=== PATIENT | male | born 1990 | race Caucasian/White ===

== ENCOUNTER 2022-08-12 15:48 | Emergency (ER) | payer OTHER, SELFPAY ==
--- NOTE | ~2022-08-12 | XR_ITS ---
EXAMINATION: XR ANKLE, RIGHT CLINICAL INFORMATION: Pain after injury COMPARISON: 01/09/2014 TECHNIQUE: AP, lateral, and mortise views of the right ankle. FINDINGS: Chronic corticated ossific density at the tip of the lateral malleolus. No acute fracture or dislocation. The ankle mortise is congruent. Osteophyte formation along the tip of the medial malleolus. Mild circumferential soft tissue swelling. There is likely an ankle joint effusion. XR/XR ankle RT min 3V IMPRESSION: Soft tissue swelling with ankle joint effusion. No acute fracture or malalignment.
--- NOTE | 2022-08-12 16:34 | ED_ITS ---
HPI - Extremity Injury (Lower) General Chief Complaint: Extremity Injury, Lower <JUSTIN Mast Last Filed: 08/12/22 16:36> Stated Complaint: R ankle pain <JUSTIN Mast Last Filed: 08/12/22 16:36> Time Seen by Provider: 08/12/22 16:57 <JUSTIN Mast Last Filed: 08/12/22 16:36> Source: patient <JUSTIN Sanford Last Filed: 08/12/22 18:11> Mode of arrival: ambulatory <JUSTIN Sanford Last Filed: 08/12/22 18:11> Limitations: no limitations <JUSTIN Sanford Last Filed: 08/12/22 18:11> History of Present Illness HPI Narrative: Patient is a 31 year old assigned male at with a history of tendon rupture in his right ankle presenting to the emergency department today with right ankle pain. Patient states that he rolled his ankle inward earlier today while rushing down the steps to leave his house. He denies feeling a pop sensation upon injury. Patient denies any dizziness, lightheadedness, abdominal pain, nausea, vomiting, fever, chills, blurry vision, double vision, loss of vision, chest pain, difficulty breathing, shortness of breath, back pain, night sweats, pain with urination, increased urinary frequency, increased urinary urgency, blood in his urine or stool, syncope or a near syncopal episode, bowel incontinence, bladder incontinence, bowel retention, bladder retention, or any other complaints at this time. <JUSTIN Sanford Last Filed: 08/12/22 18:11> MD complaint: ankle injury <JUSTIN Sanford Last Filed: 08/12/22 18:11> Onset (ago): hour(s) (4) <JUSTIN Sanford Last Filed: 08/12/22 18:11> Injury: Right: ankle <JUSTIN Sanford Last Filed: 08/12/22 18:11> Type of Injury: inversion <JUSTIN Sanford Last Filed: 08/12/22 18:11> Place: street/outdoors <JUSTIN Sanford Last Filed: 08/12/22 18:11> Exacerbating factors: other (walking) <JUSTIN Sanford Last Filed: 08/12/22 18:11> Context: walking <JUSTIN Sanford Last Filed: 08/12/22 18:11> Other symptoms: none <JUSTIN Sanford Last Filed: 08/12/22 18:11> Related Data Allergies/Adverse Reactions: Allergies Allergy/AdvReac Type Severity Reaction Status Date / Time amoxicillin [AMOXICILLIN] Allergy Unknown UNKNOWN Unverified 01/25/20 16:02 Sulfa (Sulfonamide Allergy Unknown Verified 05/12/16 00:00 Antibiotics) sulfamethoxazole Allergy Unknown UNKNOWN Unverified 01/25/20 16:02 [From BACTRIM] trimethoprim [From BACTRIM] Allergy Unknown UNKNOWN Unverified 01/25/20 16:02 <JUSTIN Mast Last Filed: 08/12/22 16:36> Review of Systems Review of Systems: Yes all other systems are reviewed and are negative <JUSTIN Sanford - Last Filed: 08/12/22 18:11> Constitutional: Constitutional: Reports no additional constitutional complaints, Denies chills, Denies fever(s) and Denies night sweats <JUSTIN Sanford Last Filed: 08/12/22 18:11> Eyes: Eyes: Reports no additional eye complaints, Denies blurry vision, Denies change in vision, Denies diplopia, Denies eye discharge, Denies loss of vision and Denies eye pain <JUSTIN Sanford Last Filed: 08/12/22 18:11> ENT: Denies dizziness <JUSTIN Sanford Last Filed: 08/12/22 18:11> Cardiovascular: Cardiovascular: Reports no additional cardiovascular complaints, Denies chest pain, Denies lightheadedness, Denies Loss of Consciousness and Denies dyspnea <JUSTIN Sanford Last Filed: 08/12/22 18:11> Respiratory: Respiratory: Reports no additional respiratory complaints and Denies dyspnea <JUSTIN Sanford Last Filed: 08/12/22 18:11> Gastrointestinal: Gastrointestinal: Reports no additional gastrointestinal complaints, Denies abdominal pain, Denies melena, Denies hematochezia, Denies change in bowel habits and Denies change in stool character <JUSTIN Sanford - Last Filed: 08/12/22 18:11> Genitourinary: Genitourinary: Reports no additional male genitourinary complaints, Denies hematuria, Denies oliguria, Denies difficulty urinating, Denies dysuria, Denies urinary frequency, Denies urinary hesitancy, Denies urinary incontinence and Denies urinary urgency <JUSTIN Sanford - Last Filed: 08/12/22 18:11> Musculoskeletal: Musculoskeletal: Reports no additional musculoskeletal complaints, Denies numbness and Denies tingling <JUSTIN Sanford - Last Filed: 08/12/22 18:11> Comments: right ankle pain <JUSTIN Sanford - Last Filed: 08/12/22 18:11> Neurologic: Denies dizziness, Denies loss of vision, Denies numbness and Denies tingling <JUSTIN Sanford - Last Filed: 08/12/22 18:11> Psychiatric: Psychiatric: Reports no additional psychiatric complaints <JUSTIN Sanford - Last Filed: 08/12/22 18:11> Endocrine: Endocrine: Reports no additional endocrine complaints <JUSTIN Sanford - Last Filed: 08/12/22 18:11> Hematologic/Lymphatic: Hematologic/Lymphatic: Reports no additional hematologic/lymphatic complaints <JUSTIN Sanford - Last Filed: 08/12/22 18:11> Allergic/Immunologic: Allergic/Immunologic: Reports no additional allergic/immunologic complaints <JUSTIN Sanford - Last Filed: 08/12/22 18:11> [facility] Past Medical History Attestation statement: The following information was validated with the patient. <JUSTIN Sanford - Last Filed: 08/12/22 18:11> Source: old records reviewed and nursing notes reviewed <JUSTIN Sanford - Last Filed: 08/12/22 18:11> Social History Social History: Social History Advance Directives: No Advance Directives Information Provided: No <JUSTIN Mast - Last Filed: 08/12/22 16:36> Physical Exam Vital Signs: Vital Signs: Last Vital Signs Temp 98 F 08/12/22 16:36 Pulse 63 08/12/22 16:36 Resp 18 08/12/22 16:36 BP 133/73 08/12/22 16:36 Pulse Ox 98 08/12/22 16:36 O2 Del Method Room Air 08/12/22 16:36 BMI result Body Mass Index 39.9 <JUSTIN Mast Last Filed: 08/12/22 16:36> Vital Signs: Last Vital Signs Temp 98 F 08/12/22 16:36 Pulse 63 08/12/22 16:36 Resp 18 08/12/22 16:36 BP 133/73 08/12/22 16:36 Pulse Ox 98 08/12/22 16:36 O2 Del Method Room Air 08/12/22 16:36 BMI result Body Mass Index 39.9 <JUSTIN Sanford - Last Filed: 08/12/22 18:11> Const: General: cooperative, no acute distress, alert and awake <JUSTIN Sanford Last Filed: 08/12/22 18:11> Nutritional Appearance: well nourished <JUSTIN Sanofrd - Last Filed: 08/12/22 18:11> Orientation/consciousness: patient oriented x3 <JUSTIN Sanford Last Filed: 08/12/22 18:11> Limitations: no limitations <JUSTIN Sanford Last Filed: 08/12/22 18:11> HEENT: Head: Yes normal to inspection and Yes atraumatic <JUSTIN Sanford - Last Filed: 08/12/22 18:11> Ears: hearing grossly normal bilaterally and external ears normal <JUSTIN Sanford Last Filed: 08/12/22 18:11> General nose exam: Normal external nose present, no nasal discharge noted and no epistaxis <JUSTIN Sanford Last Filed: 08/12/22 18:11> Face and sinus: Yes normal facial exam, No abrasion and No laceration <JUSTIN Sanford Last Filed: 08/12/22 18:11> Mouth: Normal oral and palatal mucosa present, no drooling and no muffled voice <JUSTIN Sanford Last Filed: 08/12/22 18:11> Eyes: General: appearance normal, both eyes and all related structures <Jackelin Starks PA - Last Filed: 08/12/22 18:11> Periorbital: periorbital findings normal <Jackelin Starks PA - Last Filed: 08/12/22 18:11> Eyelids: Yes eyelids normal <Jackelin Starks PA - Last Filed: 08/12/22 18:11> Conjunctivae: conjunctivae normal <Jackelin Starks PA - Last Filed: 08/12/22 18:11> Pupils: Equal, round and reactive pupils present <Jackelin Starks PA - Last Filed: 08/12/22 18:11> EOM: EOMs intact bilaterally <Jackelin Starks PA - Last Filed: 08/12/22 18:11> Neck: Neck: Yes normal visual inspection, Yes full ROM and Yes no lymphadenopathy <Jackelin Starks PA - Last Filed: 08/12/22 18:11> Chest: Chest palpation & inspection: normal inspection of the chest <Jackelin Cabralesperanza [place] - Last Filed: 08/12/22 18:11> Resp: Effort & Inspection: normal respiratory effort and able to speak in complete sentences <Jackelin Starks PA - Last Filed: 08/12/22 18:11> GI: Inspection: Yes normal to inspection <Jackelin Starks PA - Last Filed: 08/12/22 18:11> Neuro: General: patient oriented x3 <Jackelin Starks PA - Last Filed: 08/12/22 18:11> Cranial nerves: Yes Equal, round and reactive pupils present <Jackelin Starks NV - Last Filed: 08/12/22 18:11> Cognition (Neuro): normal cognition <Jackelin Starks PA - Last Filed: 08/12/22 18:11> Motor exam (neuro): 5/5 motor strength present throughout <Jackelin Starks PA - Last Filed: 08/12/22 18:11> Sensory Exam: Normal double simultaneous stimulation for sensation <Jackelin Starks PA - Last Filed: 08/12/22 18:11> Coordination: [id number] test normal <Jackelin Starks PA - Last Filed: 08/12/22 18:11> Extrem: General: Yes normal to inspection, Yes full ROM and Yes capillary refill normal <JUSTIN Sanford - Last Filed: 08/12/22 18:11> Right lower extremity: full ROM, normal capillary refill and ankle Details: tenderness Location: of the lateral malleolus and of the medial malleolus and swelling Details: laterally <JUSTIN Sanford - Last Filed: 08/12/22 18:11> Psych: Appearance: grossly normal <JUSTIN Sanford - Last Filed: 08/12/22 18:11> Mental Status: mental status grossly normal <JUSTIN Sanford - Last Filed: 08/12/22 18:11> Affect: normal affect <JUSTIN Sanford - Last Filed: 08/12/22 18:11> Attitude: cooperative <JUSTIN Sanford - Last Filed: 08/12/22 18:11> Thought process: Normal thought process present <JUSTIN Sanford Last Filed: 08/12/22 18:11> Thought content: Normal thought content present <JUSTIN Sanford Last Filed: 08/12/22 18:11> Insight: Good insight present (Psych) <JUSTIN Sanford Last Filed: 08/12/22 18:11> Course Course Course Narrative: RME - 31 yo male presents to the ER for evaluation of right ankle pain after he twisted it while walking down the stairs earlier today. It is swollen and is painful to walk on it. Plan: x-ray ankle to r/o fracture <JUSTIN Mast - Last Filed: 08/12/22 16:36> Medical Decision Making Medical Decision Making MDM Narrative: Patient is a 31 year old assigned male at with a history of right ankle tendon rupture presenting to the emergency department today with right ankle pain after rolling his ankle. Patient's physical exam showed tenderness and edema over the patients right ankle but was otherwise unremarkable. Patient's right ankle x-ray showed no acute process. I explained my physical exam findings as well as all test results to the patient. I answered all questions asked by the patient. Patient received a short walking boot. Patient's PMS was intact prior to and after boot placement. I stressed the importance of the patient following up with his primary care provider and an orthopedic provider. I stressed the importance of the patient returning to the emergency department immediately if his symptoms were to worsen or if he were to develop any dizziness, shortness of breath, difficulty breathing, chest pain, blurry vision, loss of vision, nausea, vomiting, abdominal pain, fever, chills, back pain, or any other complaints. Patient verbalized agreement and understanding with this treatment plan and discharge. <JUSTIN Sanford - Last Filed: 08/12/22 18:11> Differential Diagnosis Differential Diagnoses: The differential diagnosis associated with the presentation includes <JUSTIN Sanford Last Filed: 08/12/22 18:11> ankle sprain <JUSTIN Sanford Last Filed: 08/12/22 18:11> Independent Interpretation I performed an independent interpretation of an: Plain X-Ray <JUSTIN Sanford Last Filed: 08/12/22 18:11> Interpretation: My interpretation is in agreement with the radiologist's impression of this imaging study. EXAMINATION: XR ANKLE, RIGHT CLINICAL INFORMATION: Pain after injury? COMPARISON: 01/09/2014? TECHNIQUE: AP, lateral, and mortise views of the right ankle. FINDINGS: Chronic corticated ossific density at the tip of the lateral malleolus. No acute fracture or dislocation. The ankle mortise is congruent. Osteophyte formation along the tip of the medial malleolus. Mild circumferential soft tissue swelling. There is likely an ankle joint effusion.? XR/XR ankle RT min 3V IMPRESSION: Soft tissue swelling with ankle joint effusion. No acute fracture or malalignment. Dictated By: Omega Parra MD Signed By: Electronically signed by Omega Parra MD 08/12/22 1702 <JUSTIN Sanford - Last Filed: 08/12/22 18:11> Procedures Orthopedic Splinting/Casting Injury #1: Side: right <JUSTIN Sanford - Last Filed: 08/12/22 18:11> Lower Extremity Injury Location: ankle <JUSTIN Sanford - Last Filed: 08/12/22 18:11> Lower Extremity Immobilizer: boot orthosis <JUSTIN Sanford - Last Filed: 08/12/22 18:11> Discharge Plan Discharge Clinical Impression: Ankle sprain and strain <JUSTIN Mast - Last Filed: 08/12/22 16:36> Patient Disposition: Home, Self-Care <JUSTIN Mast - Last Filed: 08/12/22 16:36> Instructions: Ankle Sprain (ED) <JUSTIN Mast - Last Filed: 08/12/22 16:36> Additional Instructions: Follow up with your primary care provider and an orthopedic provider. Return to the emergency department immediately if your symptoms worsen or if you develop any dizziness, shortness of breath, difficulty breathing, chest pain, blurry vision, loss of vision, nausea, vomiting, abdominal pain, fever, chills, back pain, or any other complaints. <JUSTIN Mast - Last Filed: 08/12/22 16:36> Referrals: [facility] [Provider Group] (Call to establish and follow up with an orthopedic provider. ) Demetria Turpin MD [Primary Care Provider] - <JUSTIN Mast - Last Filed: 08/12/22 16:36> Stand Alone Forms: Work/School Release <JUSTIN Mast - Last Filed: 08/12/22 16:36> Interventions: ED Discharge Assessment Last Done: 08/12/22 17:44 <JUSTIN Mast - Last Filed: 08/12/22 16:36> Discharge Date/Time: 08/12/22 17:46 <JUSTIN Mast - Last Filed: 08/12/22 16:36> Print Language: Guatemalan <JUSTIN Mast - Last Filed: 08/12/22 16:36>
[2022-08-12 16:36] VITALS: BP 133/73; PULSE 63; RESP 18; TEMP 36.6; O2SAT 98; BMI 39.9
--- OUTSIDE RECORDS SUMMARY | 2022-08-12 17:15 | XMS_ITS | Continuity of Care Document ---
Author Name Unknown Organization [facility] ter Address [address] [place] [id number] Care Team Providers Care Interventional Radiologist Name Role Phone Janey MILIAN, Rickie Bravo Primary Care Physician [phone] Encounter [facility] [place] Date(s): 08/24/21 - 08/25/[address] [id number]- Encounter Diagnosis Accidental overdose(Final) - 08/25/21 Discharge Disposition: A-D/C Home Attending Physician: Chester Ferrell MD Admitting Physician: Chester Ferrell MD Referring Physician: Not on Staff, Referring MD Allergies, Adverse Reactions, Alerts Substance Reaction Severity Status amoxicillin Active Medications Narcan 4 mg/0.1 mL nasal spray = 4 mg, Nares, Both, Once, # 2 each, 0 Refills, Soft Stop, 08/25/21 3:19:00 EDT, Results [id number], Partial fill upon patient request if the prescription is for a schedule II opioid drug. Start Date: 08/25/21 Status: Ordered prednisone 20 mg oral tablet See Instructions, Starting Wednesday AM, take 2 tablets for 3 days then 1 tablet for 2 days, # 8 capsule, 0 Refills, Maintenance, 1 tablet every day till finished. 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 c software developer before this runs out Start Date: 11/28/10 Status: Ordered Vital Signs Most recent to oldest [Reference Range]: 1 2 3 Oxygen Saturation [94-100 %] 95 % (08/25/21 3:57 AM) 100 % (08/25/21 2:42 AM) 100 % (08/24/21 11:55 PM) Pulse Rate [55-90 bpm] 82 bpm (08/25/21 3:57 AM) 87 bpm (08/25/21 2:42 AM) 124 bpm *H* (08/24/21 11:55 PM) Blood Pressure [90-138/55-84 mm Hg] 134/88mm Hg (08/25/21 3:57 AM) 142/119mm Hg *H* (08/25/21 2:42 AM) 144/96mm Hg *H* (08/24/21 11:55 PM) Respiratory Rate [16-30 br/min] 15 br/min *L* (08/25/21 3:57 AM) 16 br/min (08/25/21 2:42 AM) 18 br/min (08/24/21 11:55 PM) Temperature [96.8-100.4 DegF] 97.5 DegF (08/24/21 11:55 PM) Mode of Delivery (Oxygen) Room air (08/25/21 3:57 AM) Room air (08/25/21 2:42 AM) Room air (08/24/21 11:55 PM) Blood pressure sites Arm, left (08/24/21 11:55 PM) Temperature Route Oral (08/24/21 11:55 PM)
== END 2022-08-12 17:46 | disposition home or self-care (01) ==
PROVIDERS: Emergency Provider Emergency Medicine; PCP Internal Medicine
DX: S93.401A Sprain of unspecified ligament of right ankle, initial encounter (principal); S96.911A Strain of unspecified muscle and tendon at ankle and foot level, right foot, initial encounter; X50.1XXA Overexertion from prolonged static or awkward postures, initial encounter; Y93.89 Activity, other specified; Y92.480 Sidewalk as the place of occurrence of the external cause; Y99.9 Unspecified external cause status
CPT/HCPCS: 73610; 99283

== ENCOUNTER 2023-03-22 07:19 | Emergency (ER) | payer OTHER, SELFPAY ==
--- NOTE | ~2023-03-22 | XR_ITS ---
EXAMINATION: XR RIGHT FOOT XR LEFT FOOT CLINICAL INFORMATION: Bilateral foot pain after injury. COMPARISON: 01/09/2014 TECHNIQUE: AP, lateral and oblique views of each foot. FINDINGS: Right foot: Mild hallux valgus. Joint spaces are maintained. No displaced fracture or dislocation. Chronic well-corticated ossific density at the tip of the lateral malleolus. Focal soft tissue prominence plantar aspect of the midfoot with a tiny metallic radiopaque density. Left foot: There is a fifth metatarsal bunionette deformity. Joint spaces are maintained. No displaced fracture or dislocation. Focal soft tissue prominence plantar aspect of the midfoot. XR/XR foot LT min 3V IMPRESSION: Focal symmetric soft tissue swelling plantar midfoot. Possible tiny metallic retained foreign body on the right.
--- NOTE | ~2023-03-22 | XR_ITS ---
EXAMINATION: XR RIGHT FOOT XR LEFT FOOT CLINICAL INFORMATION: Bilateral foot pain after injury. COMPARISON: 01/09/2014 TECHNIQUE: AP, lateral and oblique views of each foot. FINDINGS: Right foot: Mild hallux valgus. Joint spaces are maintained. No displaced fracture or dislocation. Chronic well-corticated ossific density at the tip of the lateral malleolus. Focal soft tissue prominence plantar aspect of the midfoot with a tiny metallic radiopaque density. Left foot: There is a fifth metatarsal bunionette deformity. Joint spaces are maintained. No displaced fracture or dislocation. Focal soft tissue prominence plantar aspect of the midfoot. XR/XR foot RT min 3V IMPRESSION: Focal symmetric soft tissue swelling plantar midfoot. Possible tiny metallic retained foreign body on the right.
--- NOTE | 2023-03-22 07:24 | ED.GENADULT ---
HPI - General Adult General Chief complaint: Wound/Laceration Stated complaint: STEPPED ON AUGER,MORA FEET LACS PER EMS Time Seen by Provider: 03/22/23 07:35 Source: patient and EMS Mode of arrival: EMS Limitations: no limitations History of Present Illness HPI narrative: This is a 32 year old male presents w/ lacerations to b/l feet s/p stepping on an ice auger in a dark basement. Reports he stepped on it with one foot lost balance then stepped on it with the other foot. Not up to date on tetanus shot. No numbness or tingling, fevers r chills. Related Data Previous Rx's Medication Instructions Recorded doxycycline hyclate 100 mg capsule 100 mg PO BID 10 days #20 caps 03/22/23 ketorolac 10 mg tablet 10 mg PO TID PRN pain 5 days #15 03/22/23 tabs morphine 15 mg immediate release 15 mg PO Q6H PRN pain 5 days #10 03/22/23 tablet tabs Allergies Allergy/AdvReac Type Severity Reaction Status Date / Time amoxicillin [AMOXICILLIN] Allergy Unknown UNKNOWN Verified 03/22/23 07:35 Sulfa (Sulfonamide Allergy Unknown Unknown Verified 03/22/23 07:35 Antibiotics) sulfamethoxazole Allergy Unknown UNKNOWN Verified 03/22/23 07:35 [From BACTRIM] trimethoprim [From BACTRIM] Allergy Unknown UNKNOWN Verified 03/22/23 07:35 Review of Systems Review of Systems: Constitutional : No Fever, No Chills, Cardiovascular : No Chest Pain, No SOB Respiratory : No Dyspnea Gastrointestinal : No abdominal pain Musculoskeletal : No Joint Swelling Skin : No rash, positive skin laceration Neuro : No Weakness, No Numbness Psych : No SI/HI Yes all other systems are reviewed and are negative [facility] Past Medical History Attestation statement: The following information was validated with the patient. Source: old records reviewed and nursing notes reviewed Social History Social History Smoked in Last 30 Days: No Use of substances other than those prescribed or required for medical reasons: Yes Substance Use Type: Marijuana Advance Directives: No Advance Directives Information Provided: No Physical Exam ED Vital Signs: Vital Signs - 24 hr 03/22/23 07:32 03/22/23 09:37 Temperature 97.1 F Pulse Rate 70 75 Respiratory Rate 18 20 Blood Pressure 114/63 112/70 Pulse Oximetry 98 97 Oxygen Delivery Method Room Air Room Air BMI result Body Mass Index 37.4 vss Appearance: Alert.? Oriented X3.? No acute distress.? Head: Normocephalic, atraumatic, no step-offs or deformities Eyes: Pupils equal, round and reactive to light.? CVS:Pulses normal.? Respiratory: No respiratory distress.? Skin: Skin warm and dry.? Normal skin color.? Normal skin turgor.?superficial 1 cm laceration to the medial aspect of right foot over 1st MTP, and 4 cm laceration to the ball of the left foot near the base of pinky toe. 2+ dp, at, pt equal and b/l. Normal sensation distally. Extremities: No lower extremity edema.? No calf ttp. 5/5 strength to bilateral upper and lower extremities Neuro: Oriented X 3.? No motor deficit.? No sensory deficit. CN 2-12 intact Course Reevaluation(s) Reevaluation #1: L foot lac was sutured using 5, 4-0 sutures patient reporting significant pain IM Dilaudid given. laceration was very deep, there was good approximation of wound edges. No complications during procedure. Educated on worrisome signs and symptoms and when to return. X-ray showing focal symmetric soft tissue swelling to the plantar midfoot possible tiny metallic retained foreign body on the right, on exam unable to visualize this foreign body. No indication to dig out foreign body/ remove it. Will educate on warm water soaks. Will have him follow-up with his PCP and I also advised him to come in in 5 days for wound check and suture removal. Will go home with a narcotic for pain control, crutches, Toradol. educated on safe narcotic use peer Educated patient on diagnosis and treatment plan, answered all question, patient verbalizes understanding. At this time patient will be discharged home, advised to return with new or worsening symptoms. Educated on worrisome signs and symptoms and when to return. At this time I feel comfortable discharge home. Time: 09:52 Medications Administered Discontinued Medications Generic Name Dose Route Start Last Admin Trade Name Freq PRN Reason Stop Dose Admin Diphtheria/Tetanus/Acell Pertussis 0.5 ml 03/22/23 07:23 03/22/23 07:43 Diphth,Pertus(Acell),Tet Adult 0.5 Ml Syringe IM 03/22/23 07:24 0.5 ml .ONCE ONE Administration Hydromorphone HCl 2 mg 03/22/23 09:31 03/22/23 09:38 Hydromorphone Hcl 2 Mg/Ml Vial IM 03/22/23 09:32 2 mg ONCE ONE Administration Protocol Ketorolac Tromethamine 30 mg 03/22/23 07:38 03/22/23 07:42 Ketorolac Tromethamine 15 Mg/Ml Vial IM 03/22/23 07:39 30 mg ONCE ONE Administration Lidocaine HCl 20 ml 03/22/23 08:44 03/22/23 09:39 Lidocaine Hcl 1 % 20 Ml Vial SUBCUT 03/22/23 08:45 20 ml ONCE ONE Administration Medical Decision Making Medical Decision Making [facility] Narrative: 0725 32 year old male presenting w/ lacerations to b/l feet status post stepping on an ice auger. Tetanus not up to date superficial 1 cm laceration to the medial aspect of right foot over 1st MTP, and 4 cm laceration to the ball of the left foot near the base of pinky toe. 2+ dp, at, pt equal and b/l. Normal sensation distally. Likely simple lac no signs of fb. Unlikely fx or dislocaiton. No signs of threat to limb or nv compromise Plan- imaging, repair Differential Diagnosis Differential Diagnoses: The differential diagnosis associated with the presentation includes Likely simple lac no signs of fb. Unlikely fx or dislocaiton. No signs of threat to limb or nv compromise Admission/Observation Consideration of admission/observation: Escalation of care including admission/observation considered Independent Interpretation I performed an independent interpretation of an: Plain X-Ray Radiology Impression Discussion of test interpretation with radiology: I have reviewed the radiologist's reading. Critical Care Time Critical Care Time Critical Care Time: No Discharge Plan Discharge Clinical Impression: Foot laceration Patient Disposition: Home, Self-Care Instructions: Laceration (ED) Additional Instructions: Take your medications as prescribed. If you were prescribed antibiotics today, it is important that you take your medication to their entirety, do not skip any doses, do not finish them early. Follow-up with your primary care provider this week. Return to the emergency department with new or worsening symptoms. Such as fevers, chills, chest pain, shortness of breath, nausea, vomiting, dizziness, headache, vision changes, lethargy In case of emergency call 911 Educated urine worrisome signs and symptoms such as redness, swelling, severe pain, fevers, skin color changes or black skin. Also educated you on warning signs of osteomyelitis or bone infection, return if any of these arise. A narcotic has been sent to your pharmacy please take this as prescribed. Do not take more than the prescribed dose. Narcotic medications can cause addiction. Please do not mix them with alcohol. Do not take them while driving or operating machinery. Do not take them with any other narcotics. Do not share them with friends or family. They can cause constipation. Take them only for severe pain. Toradol has been sent to your pharmacy, you tolerated this well in the department. Please take this as prescribed do not take this with ibuprofen, or other NSAIDs, do not mix this with alcohol. Side effects of this medication including increased risk for bleeding and possible kidney injury. XR/XR foot RT/LT min 3V IMPRESSION: Focal symmetric soft tissue swelling plantar midfoot. Possible tiny metallic retained foreign body on the right. Prescriptions: New doxycycline hyclate 100 mg capsule 100 mg PO BID 10 Days Qty: 20 0RF morphine 15 mg tablet 15 mg PO Q6H PRN (Reason: pain) 5 Days Qty: 10 0RF Rx Instructions: Partial Fill upon patient request. ketorolac 10 mg tablet 10 mg PO TID PRN (Reason: pain) 5 Days Qty: 15 0RF Referrals: ED Physician,Generic [Physician] - 2 days Stand Alone Forms: Work/School Release
[2023-03-22 07:32] VITALS: BP 114/63; BP 120/82; PULSE 70; PULSE 84; RESP 18; TEMP 36.2; O2SAT 98; BMI 37.4
[2023-03-22] MEDS: Ketorolac Tromethamine 15 MG/ML VIAL 30 MG IM (07:42)
[2023-03-22] MEDS: Diphth,Pertus(ACell),Tet Adult 0.5 ML SYRINGE IM (07:43)
[2023-03-22 09:37] VITALS: BP 112/70; PULSE 75; RESP 20; O2SAT 97
[2023-03-22] MEDS: HYDROmorphone HCl 2 MG/ML VIAL IM (09:38)
[2023-03-22] MEDS: Lidocaine HCl 1 % 20 ML VIAL SUBCUT (09:39)
[2023-03-22] MEDS: Bacitracin Oint 0.9 GM PACKET 4 APPL TOPICAL (09:59)
== END 2023-03-22 10:31 | disposition home or self-care (01) ==
PROVIDERS: Emergency Provider Emergency Medicine; PCP Internal Medicine
DX: S91.312A Laceration without foreign body, left foot, initial encounter (principal); S91.311A Laceration without foreign body, right foot, initial encounter; W27.0XXA Contact with workbench tool, initial encounter; Y93.9 Activity, unspecified; Y92.9 Unspecified place or not applicable; Y99.9 Unspecified external cause status; Z23 Encounter for immunization
CPT/HCPCS: 73630; 90471; 90715; 96372; 99284; J1170; J1885

== ENCOUNTER 2023-03-22 22:34 | Emergency (ER) | payer OTHER, SELFPAY ==
[2023-03-22 22:40] VITALS: BP 131/72; PULSE 77; RESP 18; TEMP 36.5; O2SAT 95; BMI 36.6
--- NOTE | 2023-03-23 00:50 | PC.NURSE ---
Pt awake and alert in stretcher with no distress noted. he has dressings to his bilateral feet that family reports were replaced multiple times throughout the day s/t excessive bleeding. Pt's feet and dressings were dirty as he reports walking barefoot. Pt with lac to the right foot bonion area that is not well approximated and appears to have nothing on/over it and a lac to the bottom of his left foot with sutures still in place however wound edges are not well approximated any longer. Pt and his bedside visitor/cousin (who was also present during initial visit) expressed great frustration regarding repeat visit and how care/discharge was managed at previous visit. Family also frustrated with length of time that they have to wait to see a provider, fine arts model aware of situation. RN to place incident report as family/patient report being given their dc paperwork from a person in [employer] scrubs, denies anyone going over instructions and denies ever receiving the crutches as ordered
--- NOTE | 2023-03-23 00:51 | ED.WOUNDLAC ---
HPI - Wound/Laceration General Chief Complaint: Wound/Laceration Stated Complaint: was seen earlier for lacerations on leg Time Seen by Provider: 03/23/23 00:45 Source: patient and family Mode of arrival: ambulatory Limitations: no limitations History of Present Illness HPI narrative: Patient comes to the emergency room accompanied by his mother. Patient was seen here earlier today for lacerations in both feet which patient has sustained after stepping into an dallin auger drill barefoot when he was walking in his basement. Early today, patient had stitches to the plantar aspect of the left foot, and has another laceration to the right foot. However, glue was applied but patient states that he continues bleeding quite a bit, patient will need stitches. Related Data Previous Rx's Medication Instructions Recorded doxycycline hyclate 100 mg capsule 100 mg PO BID 10 days #20 caps 03/22/23 ketorolac 10 mg tablet 10 mg PO TID PRN pain 5 days #15 03/22/23 tabs morphine 15 mg immediate release 15 mg PO Q6H PRN pain 5 days #10 03/22/23 tablet tabs doxycycline hyclate 100 mg capsule 100 mg PO BID #18 caps 03/23/23 ketorolac 10 mg tablet 10 mg PO TID PRN pain #10 tabs 03/23/23 oxycodone 5 mg tablet 5 mg PO BID PRN pain #7 tabs 03/23/23 Allergies Allergy/AdvReac Type Severity Reaction Status Date / Time amoxicillin [AMOXICILLIN] Allergy Unknown UNKNOWN Verified 03/22/23 07:35 Sulfa (Sulfonamide Allergy Unknown Unknown Verified 03/22/23 07:35 Antibiotics) sulfamethoxazole Allergy Unknown UNKNOWN Verified 03/22/23 07:35 [From BACTRIM] trimethoprim [From BACTRIM] Allergy Unknown UNKNOWN Verified 03/22/23 07:35 [facility] Social History Social History Substance Use Type: Marijuana Advance Directives: No Advance Directives Information Provided: Yes Physical Exam Vital Signs: Vital Signs: Last Vital Signs Temp 97.7 F 03/22/23 22:40 Pulse 77 03/22/23 22:40 Resp 18 03/22/23 22:40 BP 131/72 03/22/23 22:40 Pulse Ox 95 03/22/23 22:40 O2 Del Method Room Air 03/22/23 22:40 BMI result Body Mass Index 36.6 Const: Other: Appearance: Alert. Oriented X3. No acute distress. Eyes: Pupils equal, round and reactive to light. ENT: Pharynx normal. Neck: Normal inspection. Neck supple. No lymph nodes noted. No crepitus CVS: Normal heart rate and rhythm. Pulses normal. Normal S1 and S2 Respiratory: No respiratory distress. Breath sounds normal. No Wheezing. No rales Abdomen: Soft and nontender. No rigidity. No distention. Skin: Laceration on the plantar aspect of the left foot seems intact. Stitches in place, no signs of infection. Patient has a 2 cm laceration on the medial aspect of the right foot, actively bleeding, patient will need stitches. Extremities: No lower extremity edema. No Lacerations. No Rash Neuro: Oriented X 3. No motor deficit. No sensory deficit. Moving all extremities. No slurred speech. CN 2 through 12 grossly intact Psych: calm, cooperative, normal affect Medical Decision Making Medical Decision Making MDM Narrative: -the vision on the right foot was stitched, 3 sutures needed, proximately 2 cm. -there was a bit of bleeding through the sutures on the plantar aspect of the left foot, foot was cleaned, Surgicel was applied Differential Diagnosis Differential Diagnoses: The differential diagnosis associated with the presentation includes (Lacerations, puncture wound) Procedures Laceration Laceration 1: Site: other (Left foot) Side (If applicable): left Size (cm): 2 Description: stellate, flap and irregular Depth: simple, single layer Local Anesthetic: lidocaine 1% Amount of anesthesia used (mL): 10 Skin layer closed with: nylon Size (cm): 4-0 Number of sutures: 3 Discharge Plan Discharge Clinical Impression: Laceration Patient Disposition: Home, Self-Care Instructions: Laceration (ED) Additional Instructions: Please follow-up with your primary care physician tomorrow. If you have any worsening or new symptoms, please return to the emergency room or call 911 Prescriptions: New doxycycline hyclate 100 mg capsule 100 mg PO BID Qty: 18 0RF ketorolac 10 mg tablet 10 mg PO TID PRN (Reason: pain) Qty: 10 0RF Rx Instructions: Do not use NSAIDs with this medication oxycodone 5 mg tablet 5 mg PO BID PRN (Reason: pain) Qty: 7 0RF Rx Instructions: Partial Fill upon patient request. No Action doxycycline hyclate 100 mg capsule 100 mg PO BID 10 Days Qty: 20 0RF morphine 15 mg tablet 15 mg PO Q6H PRN (Reason: pain) 5 Days Qty: 10 0RF Rx Instructions: Partial Fill upon patient request. ketorolac 10 mg tablet 10 mg PO TID PRN (Reason: pain) 5 Days Qty: 15 0RF
[2023-03-23] MEDS: Lidocaine HCl 2 % MPF 5 ML VIAL INFILTRATI (01:51)
[2023-03-23] MEDS: Doxycycline Monohydrate 100 MG CAPSULE PO (01:51)
[2023-03-23 02:00] VITALS: BP 132/68; PULSE 79; RESP 16; O2SAT 99
== END 2023-03-23 02:18 | disposition home or self-care (01) ==
PROVIDERS: Emergency Provider Emergency Medicine; PCP Internal Medicine
DX: S91.312A Laceration without foreign body, left foot, initial encounter (principal); W27.0XXA Contact with workbench tool, initial encounter; Y93.9 Activity, unspecified; Y92.9 Unspecified place or not applicable; Y99.9 Unspecified external cause status
CPT/HCPCS: 12001; 99284

== ENCOUNTER 2023-03-29 13:15 | Outpatient (AMB) | payer OTHER, SELFPAY ==
--- NOTE | 2023-03-29 13:30 | AM.OFFWIN_ITS ---
Intake Vital Signs 03/29/23 13:31 Height 6 ft BMI Reason not done Patient refused/unable BP 110/74 Blood Pressure Location Lt brachial Position Sitting Pulse 103 H Pulse Source Pulse Oximeter Temp 98.3 F Temp Source Temporal Artery Scan Pulse Oximetry (%) 96 Oxygen Delivery Method Room Air Intake Visit Reasons: Ep, cut on bottom of both feet with auger Intake Note: [place] is here for c/o cuts on bottom of feet[place] [facility] [place] patient 03/22/23 and informed patient to come here for reevaluation Patient Tobacco Use Status: Never used Tobacco Allergies amoxicillin [AMOXICILLIN] Allergy (Unknown, Verified 04/04/23 14:38) UNKNOWN Sulfa (Sulfonamide Antibiotics) Allergy (Unknown, Verified 04/04/23 14:38) Unknown sulfamethoxazole [From BACTRIM] Allergy (Unknown, Verified 04/04/23 14:38) UNKNOWN trimethoprim [From BACTRIM] Allergy (Unknown, Verified 04/04/23 14:38) UNKNOWN Medication List - Last Reconciled 04/04/23 by Ramón Hussein MD doxycycline hyclate 100 mg PO BID ketorolac 10 mg PO TID PRN 5 days oxycodone 5 mg PO BID PRN Do you need a note to return to daycare/school/sports/work: Yes HPI Ep, cut on bottom of both feet with auger HPI Details 32-year-old male presents to the office for a sick visit. Requesting stitches removed from the undersurface of both his feet. [facility] Patient Tobacco Use Status: Never used Tobacco Substance Use Type: Marijuana Physical Exam Vital Signs: Last Vital Signs Temp 98.3 F 03/29/23 13:31 Pulse 103 H 03/29/23 13:31 BP 110/74 03/29/23 13:31 Pulse Ox 96 03/29/23 13:31 Oxygen Delivery Method Room Air 03/29/23 13:31 Skin Other: Plantar surface: Bilaterally: Lacerated wound which has been stitched. Wound approximation is adequate. Assessment & Plan Assessment & Plan (1) Wound of foot: Code(s): S91.309A - Unspecified open wound, unspecified foot, initial encounter Plan: Stitches removed. Patient tolerated the procedure well. Coding Level of Care Code Est Pt Level 3 (96736) Diagnoses Wound of foot S91.309A
[2023-03-29 13:31] VITALS: BP 110/74; PULSE 103; TEMP 36.8; O2SAT 96
== END 2023-03-29 15:26 | disposition home or self-care (01) ==
PROVIDERS: PCP Internal Medicine; Visit Provider Internal Medicine
DX: S91.309A Unspecified open wound, unspecified foot, initial encounter (principal)
CPT/HCPCS: 99213

== ENCOUNTER 2025-02-20 03:33 | Emergency (ER) | payer SELFPAY ==
--- NOTE | ~2025-02-20 | XR_ITS ---
CLINICAL HISTORY: asthma sob 1 view chest x-ray Comparison: None provided Findings: No consolidation or effusion. Normal size heart. No acute fracture. IMPRESSION: No acute cardiopulmonary abnormality. This document has been electronically signed by: Jesica Pool on 02/20/2025 05:00:58
[2025-02-20 03:37] VITALS: BP 131/68; BP 149/80; PULSE 103; PULSE 90; RESP 22; TEMP 37.2; O2SAT 92; O2SAT 94; BMI 40.6
[2025-02-20 03:44] VITALS: BP 149/80; PULSE 97; RESP 16; TEMP 36.9; O2SAT 92
--- NOTE | 2025-02-20 04:01 | ED_ITS ---
HPI - Asthma General Chief Complaint: Asthma Stated Complaint: SOB Time Seen by Provider: 02/20/25 04:01 Source: patient and EMS Mode of arrival: EMS Limitations: no limitations History of Present Illness ED Provider: Dr. Josefina Bourgeois HPI Narrative: 34-year-old male with history of asthma presenting with shortness of breath ongoing since about 6:00 p.m. this evening after getting home from work. States he used his inhaler but feels as though it was not really helping much. Also used a nebulizer treatment which did not help. He did feel some relief after getting a DuoNeb by EMS prior to arrival though. Admits he has been feeling hot and cold but has not measured temperature. Denies cough with sputum production. No known sick contacts or travel. Had been feeling well prior to this. Related Data Previous Rx's ?Medication ?Instructions ?Recorded ketorolac 10 mg tablet 10 mg PO TID PRN pain 5 days #15 03/22/23 tabs doxycycline hyclate 100 mg capsule 100 mg PO BID #18 c aps 03/23/23 oxycodone 5 mg tablet 5 mg PO BID PRN pain #7 tabs 03/23/23 albuterol sulfate 90 mcg/actuation 2 inh inhalation Q4 H PRN shortness 02/20/25 breath activated powder inhaler of breath #1 ea prednisone 50 mg tablet 50 mg PO DAILY 5 days #5 tab s 02/20/25 Allergies Allergy/AdvReac Type Severity Reaction Status Date / Time amoxicillin (AMOXICILLIN) Allergy Unknown UNKNOWN Verified 02/20/25 03:51 Sulfa (Sulfonamide Allergy Unknown Unknown Verified 02/20/25 03:51 Antibiotics) sulfamethoxazole (From Allergy Unknown UNKNOWN Verified 02/20/25 03:51 BACTRIM) trimethoprim (From BACTRIM) Allergy Unknown UNKNOWN Verified 02/20/25 03:51 Review of Systems 2 Review of Systems: as per HPI, full review of systems performed and negative but for the above mentioned pertinent positives and negatives. [facility] Social History Social History Patient Tobacco Use Status: Never used Tobacco Smoked in Last 30 Days: Yes Use of substances other than those prescribed or required for medical reasons: No Substance Use Type: Marijuana Advance Directives: No Advance Directives Information Provided: Yes Do you have a plan to hurt others: No Plan Physical Exam 2 Exam: Exam: GENERAL: Ill-appearing, moderate respiratory distress. SKIN: Normal skin color for ethnicity, warm, dry, no rashes noted. HEENT:? Normocephalic, atraumatic, no stridor, EOMI. NECK: Soft, supple, full ROM, midline structures nontender, no step-offs, no deformities, no lymphadenopathy. CHEST: Heart regular tachycardia, symmetric chest rise and fall. PULMONARY: Diffuse wheezes throughout, tachypnea, poor air movement bilaterally, moderate respiratory distress. ABDOMINAL: Soft, nontender, quiet bowel sounds in all quadrants. : Deferred. MUSCULOSKELETAL: Normal tone, full range of motion, no deformities, no peripheral edema. NEURO: Alert and oriented to person, CN II through XII intact, no focal neurologic deficits.? PSYCHIATRIC: Anxious affect, appropriate demeanor. Vital Signs: Vital Signs: Last Vital Signs Temp 97.7 F 02/20/25 06:44 Pulse 97 02/20/25 06:44 Resp 19 02/20/25 06:44 BP 106/59 L 02/20/25 06:44 Pulse Ox 94 02/20/25 06:44 O2 Del Method Room Air 02/20/25 06:44 BMI result Body Mass Index 40.6 Medications Administered Discontinued Medications Generic Name Dose Route Start Last Admin Trade Name Freq PRN Reason Stop Dose Admin Albuterol Sulfate 7.5 mg/ 10 mg 02/20/25 04:00 02/20/25 04:04 Albuterol Sulfate 2.5 mg INHALE 02/20/25 04:01 10 mg ONCE ONE Administration Prednisone 50 mg 02/20/25 06:28 02/20/25 06:35 Prednisone 10 Mg Tablet PO 02/20/25 06:29 50 mg ONCE ONE Administration Medical Decision Making Medical Decision Making [facility] Narrative: Patient presents today with chief complaint of shortness of breath. Differential diagnosis includes, but is not limited to, upper respiratory infection, pneumonia, COPD exacerbation, asthma exacerbation, CHF, pneumothorax, pleural effusion, pulmonary embolism, ACS. Broad-based work-up will be initiated to evaluate for etiology of patient's symptoms. Clincal picture is consistent with asthma exacerbation. No evidence of pneumonia. Will send home with albuterol and prednisone. Using shared decision making, plan for discharge home to follow-up with primary care and/or specialist.? Patient understands and agrees with plan for discharge.? Discharged home in stable condition. Differential Diagnosis Differential Diagnoses: The differential diagnosis associated with the presentation includes (as above) Admission/Observation Consideration of admission/observation: Escalation of care including admission/observation considered Lab Data MDM Lab Attestation statement: I reviewed the patient's lab results. 02/20/25 04:05 02/20/25 04:05 Labs: Lab Results 02/20/25 Range/Units 04:05 WBC 8.9 (4.8-10.8) X10*3/uL RBC 4.79 (4.60-5.80) X10*6/uL Hgb 13.7 L (14.0-18.0) g/dl Hct 41.6 L (42.0-52.0) % MCV 86.8 (80.0-98.0) fL MCH 28.6 (27.0-33.0) pg MCHC 32.9 (31.0-36.0) g/dl RDW 12.8 (11.0-16.0) % Plt Count 268 (160-400) X10*3/uL MPV 9.5 (9.4-12.4) fL Immature Gran % (Auto) 0.4 (0.0-0.4) % Neut % (Auto) 48.9 (45-73) % Lymph % (Auto) 29.4 (20-40) % Jerome % (Auto) 7.0 (2-11) % Eos % (Auto) 13.4 H (0-4) % Baso % (Auto) 0.9 (0-2) % Lymph # (Auto) 2.6 (1.2-4.9) X10*3/uL Jerome # (Auto) 0.6 (0.1-1.2) X10*3/uL Eos # (Auto) 1.2 H (0.0-0.4) X10*3/uL Baso # (Auto) 0.1 (0.0-0.2) X10*3/uL Abs Immat Gran (auto) 0.04 H (0.00-0.03) X10*3/uL Absolute Neuts (auto) 4.4 (2.0-8.3) x10*3/uL Absolute Nucleated RBC 0.000 (0.0-0.012) X10*3/uL Nucleated RBC % (auto) 0.0 (0.0-0.2) /100WBC Sodium 142 (135-145) mmol/L Potassium 3.7 (3.3-5.1) mmol/L Chloride 106 (96-108) mmol/L Carbon Dioxide 27 (22-29) mmol/L Anion Gap 13 (12-20) BUN 17 H (9-16) mg/dL Creatinine 1.18 (0.5-1.4) mg/dL Estim Creat Clear Calc 122.1 Estimated GFR > 60 Random Glucose 129 H (60-115) mg/dL Calcium 8.8 (8.4-10.2) mg/dL Total Bilirubin 0.2 (0.0-1.0) mg/dL AST 44 H (5-37) U/L ALT 56 H (0-40) U/L Alkaline Phosphatase 53 (39-117) U/L Total Protein 6.7 (6.5-8.0) g/dL Albumin 4.1 (3.5-5.0) g/dL COVID-19 (SHANNON) Negative (Negative) COVID-19 Clin Com See Note Influenza Type A (ANALISA) Negative (Negative) Influenza Type B (ANALISA) Negative (Negative) Influenza A & B Note See Note Independent Interpretation I performed an independent interpretation of an: Plain X-Ray Interpretation: My independent interpretation of the chest x-ray reveals no consolidations, pulmonary edema, pleural effusion, pneumothorax, obvious bony abnormalities. Radiology Impression Discussion of test interpretation with radiology: I have reviewed the radiologist's reading. Independent Historian Clinical information obtained from an independent historian. History obtained from or confirmed by: EMS External Record Review External record reviewed: Inpatient record Prescription Management I considered prescription management with: Other (steroids, albuterol) Chronic Conditions Patient?s care impacted by: Other (asthma) Discharge Plan Discharge Clinical Impression: Asthma with acute exacerbation Patient Disposition: Home, Self-Care Instructions: Asthma (ED) Additional Instructions: Take your steroids every day until the course is completed. Use your inhaler as needed. I have sent an additional inhaler to your pharmacy. Try to fill it as soon as possible. Return to the emergency room with any new or worsening symptoms including: Worsening shortness of breath, severe chest pain, fevers greater than 100 degrees, changes in your sputum production, any new symptom that concerns you. Call 911 with any medical emergency. Prescriptions: New prednisone 50 mg tablet 50 mg PO DAILY 5 Days Qty: 5 0RF albuterol sulfate 90 mcg/actuation aerosol powdr breath activated 2 inh inhalation Q4H PRN (Reason: shortness of breath) Qty: 1 0RF No Action doxycycline hyclate 100 mg capsule 100 mg PO BID Qty: 18 0RF oxycodone 5 mg tablet 5 mg PO BID PRN (Reason: pain) Qty: 7 0RF Rx Instructions: Partial Fill upon patient request. ketorolac 10 mg tablet 10 mg PO TID PRN (Reason: pain) 5 Days Qty: 15 0RF Interventions: ED Discharge Assessment Last Done: 02/20/25 06:44 Discharge Date/Time: 02/20/25 07:00 Print Language: Northern Irish
[2025-02-20 04:04] VITALS: PULSE 80; RESP 16; O2SAT 93
[2025-02-20] MEDS: Albuterol Sulfate 7.5 MG, Albuterol Sulfate (0.083%) 2.5 MG 10 MG INHALE (04:04)
[2025-02-20 04:15] LABS: Hematocrit 41.6 % (42.0-52.0); Hemoglobin 13.7 g/dl (14.0-18.0); Imm Gran Abs Auto 0.04 X10*3/uL (0.00-0.03); Imm Gran Pct Auto 0.4 % (0.0-0.4); Lymphocytes Absolute Auto 2.6 X10*3/uL (1.2-4.9); MANUAL DIFF FLAG NO; Mean Corpuscular HGB Conc 32.9 g/dl (31.0-36.0); Mean Corpuscular Hemoglobin 28.6 pg (27.0-33.0); Mean Corpuscular Volume 86.8 fL (80.0-98.0); NRBC Abs Auto 0.000 X10*3/uL (0.0-0.012); NRBC Pct Auto 0.0 /100WBC (0.0-0.2); Platelet Count 268 X10*3/uL (160-400); Red Blood Count 4.79 X10*6/uL (4.60-5.80); White Blood Count 8.9 X10*3/uL (4.8-10.8)
--- OUTSIDE RECORDS SUMMARY | 2025-02-20 04:18 | XMS_ITS | Patient Health Record ---
Author Organization [facility] Address [address] [place] [address] Care Team Providers Care Cull Grader Name Role Phone Rickie Toth MD Primary Care Provider Josias Frausto Unavailable [phone] Allergies Allergen (clinical drug ingredient) Drug/Non Drug Allergy documented on EMR Reaction Allergy Type Onset Date Status sulfamethoxazole / trimethoprim Bactrim Unknown Drug Allergy Active Reason For Referral No Information Medications Medication SIG (Take, Route, Frequency, Duration) Notes Start Date End Date Status Omeprazole 20 MG 1 tablet Orally One tablet every morning & one tablet every evening 30 minutes before a meal; Duration: 30 days 12/22/2011 Active Singulair Active Flovent Diskus Activ e Vitamin D Active Loratadine Active Omeprazole 20.0 Milligram TAKE 1 TABLET BY MOUTH EVERY MORNING AND TAKE 1 TABLET BY MOUTH EVERY EVENING 30 MINUTES BEFORE A MEAL; Duration: 30 Active Problems Problem Type SNOMED Code ICD Code Onset Dates Problem Status W/U Status Risk Notes Problem Reflux esophagitis (046164029) Reflux esophagitis (530.11) Active confirmed Problem Esophageal reflux (495266151) Esophageal reflux (530.81) Active confirmed Plan Of Treatment No Information Insurance Providers Payer Name Payer Address Payer Phone Subscriber Number Group Number Insured Name Patient Relationship to Insured Coverage Start Date Coverage End Date [facility] [employer] [facility] [address] [address] [place], [place] [id number] TOMAS MIRZA Self - patient is the insured MEDICAID OF [employer] [address] [place] [address] [id number] TOMAS MIRZA Self - patient is the insured Medical (General) History Medical History History ICD Code see old record, no new history asthma ADHD Surgical History Surgery Date(Month/Year) see old record, no new history elbow surgery
--- OUTSIDE RECORDS SUMMARY | 2025-02-20 04:18 | XMS_ITS | Encounter Summary ---
Author Organization [facility] Address [address] [place] [phone] Phone Care Team Providers Care President Sales And Marketing Name Role Phone Rickie Toth MD Primary Care Provider Lobo wilson Encounter Details Date Type Department Care Team (Late st Contact Info) Description 12/24/2016 Conversion Encounter [facility] - [address] [address] Social History Tobacco Use Types Packs/Day Years Used Date Smoking Tobacco: Never Comments:Never smoker Sex and Gender Information Value Date Recorded Sex Assigned at Not on file Legal Sex Male 4:40 PM EDT Gender Identity Not on file Sexual Orientation Not on file documented as of this encounter Plan of Treatment Not on file documented as of this encounter Visit Diagnoses Not on filedocumented in this encounter Care Teams President Sales And Marketing Relationship Specialty Start Date End Date Rickie Toth MD PCP - General 12/18/16 10/29/22 documented as of this encounter
--- OUTSIDE RECORDS SUMMARY | 2025-02-20 04:18 | XMS_ITS | Encounter Summary ---
Author Organization [facility] Address [address] [place] [phone] Phone Care Team Providers Care Paper Bag Press Operator Name Role Phone Rickie Toth MD Primary Care Provider Lobo wilson Encounter Details Date Type Department Care Team (Late st Contact Info) Description 09/27/2009 Documentation [facility] [address] [place], [place] [phone] Family Medicine, Physician [address] [place] [address] Social History Tobacco Use Types Packs/Day Years Used Date Smoking Tobacco: Never Assessed Sex and Gender Information Value Date Recorded Sex Assigned at Not on file Legal Sex Male 4:40 PM EDT Gender Identity Not on file Sexual Orientation Not on file documented as of this encounter Plan of Treatment Not on file documented as of this encounter Visit Diagnoses Not on filedocumented in this encounter Care Teams Paper Bag Press Operator Relationship Specialty Start Date End Date Rickie Toth MD PCP - General 12/18/16 10/29/22 documented as of this encounter
--- OUTSIDE RECORDS SUMMARY | 2025-02-20 04:18 | XMS_ITS | Encounter Summary ---
Author Organization [facility] Address [address] [place] [address] Phone Care Team Providers Care Post Closer Name Role Phone Rickie Toth MD Primary Care Provider Lobo wilson Encounter Details Date Type Department Care Team (Late st Contact Info) Description 05/01/2010 Documentation [facility] [address] [place], [place] [phone] Family Medicine, Physician [address] [place] [address] Social History Tobacco Use Types Packs/Day Years [...] on filedocumented in this encounter Care Teams Post Closer Relationship Specialty Start Date End Date Rickie Toth MD PCP - General 12/18/16 10/29/22 documented as of this encounter
--- OUTSIDE RECORDS SUMMARY | 2025-02-20 04:18 | XMS_ITS | Clinical Summary ---
Author Organization [facility] Address [address] [place] [address] Phone Care Team Providers Care Blood Bank Supervisor Name Role Phone Unavailable Primary Care Provider Unavailabl e Immunizations Immunization Administration Dates Next Due DTP 09/17/1995, 3,04/11/1991,02/07,1990 Hep B, ped/adol 11/24/1996,02/15/1996,09/17/1995 Hib (PRP-T) 02/07/1992, 1,02/07/1991,12/07 MMR 12/30/1994,01/31/1992 Meningococcal Conj (Menactra) MCV4P 10/30/2005 OPV 09/17/1995, 3,02/07/1991,12/07 Td (adult) (MBL), 2 Lf tetan us toxoid, PF, adsorbed 11/09/2002 Tdap 11/24/2007 Family History Relation Name Status Comments Father Alive Father: Migrain es Maternal Grandmother Alive Materna l grandmother: Migraines Social History Tobacco Use Types Packs/Day Years Used Date Smoking Tobacco: Never Comments:Never smoker Sex and Gender Information Value Date Recorded Sex Assigned at Not on file Legal Sex Male 4:40 PM EDT Gender Identity Not on file Sexual Orientation Not on file Last Filed Vital Signs Vital Sign Reading Time Taken Comments Blood Pressure 118/78 04/07/2011 12:00 AM EST Pulse - - Temperature 36.3 C (97.4 F) 05/20/2011 12:00 AM EST Respiratory Rate - - Oxygen Saturation - - Inhaled Oxygen Concentration - - Weight 131 kg (288 lb) 05/20/2011 12:00 AM EST Height 176.5 cm (5' 9.5 ) 04/08/2011 12:00 AM ES T Body Mass Index 41.92 04/08/2011 12:00 AM EST Plan of Treatment Health Maintenance Due Date Last Done Comments Varicella Vaccines (1 of 2 - 13+ 2-dose series) 10/07/2003 HPV Vaccines (1 - 3-dose SCDM series) 2017 DTaP,Tdap,and Td Vaccines (7 - Td or Tdap) 11/23/2017 11/24/2007, 11/09/2002, 09/17/1995, Additional history exists Influenza Vaccines (#1) 2024 COVID-19 Vaccine ( season) 2025 HIB Vaccines Completed 02/07/1992, 07/1990, 02/07/1991, Additional history exists MMR Vaccines Completed 12/30/1994, 01/31/1992 IPV Vaccines Completed 09/17/1995, 08/1992, 02/07/1991, Additional history exists Hepatitis B Vaccines Completed 11/24/1996, 02/15/1996, 09/17/1995 Meningococcal Vaccine Aged Out 10/30/2005 No richie latricia eligible based on patient's age to complete this topic Hepatitis A Vaccines Aged Out No long er eligible based on patient's age to complete this topic Men B Vaccine Aged Out No longer elig ible based on patient's age to complete this topic Pneumococcal Vaccine Aged Out No long er eligible based on patient's age to complete this topic
--- OUTSIDE RECORDS SUMMARY | 2025-02-20 04:18 | XMS_ITS | Encounter Summary ---
Author Organization [facility] Address [address] [place] [address] Phone Care Team Providers Care Maintenance Tech Name Role Phone Rickie Toth MD Primary Care Provider Lobo wilson Encounter Details Date Type Department Care Team (Late st Contact Info) Description 11/16/2011 Documentation [facility] [address] [place], [place] [phone] Family Medicine, Physician [address] [place] [address] Social History Tobacco Use Types Packs/Day Years [...] on filedocumented in this encounter Care Teams Maintenance Tech Relationship Specialty Start Date End Date Rickie Toth MD PCP - General 12/18/16 10/29/22 documented as of this encounter
--- OUTSIDE RECORDS SUMMARY | 2025-02-20 04:19 | XMS_ITS | Encounter Summary ---
Author Organization [facility] Address [address] [place] [address] Phone Care Team Providers Care Mechanical Design Drafter Name Role Phone Rickie Toth MD Primary Care Provider Lobo wilson Encounter Details Date Type Department Care Team (Late st Contact Info) Description 04/12/2010 Documentation [facility] [address] [place], [place] [phone] Family Medicine, Physician [address] [place] [address] Social History Tobacco Use Types Packs/Day Years [...] on filedocumented in this encounter Care Teams Mechanical Design Drafter Relationship Specialty Start Date End Date Rickie Toth MD PCP - General 12/18/16 10/29/22 documented as of this encounter
[2025-02-20 04:35] LABS: Alanine Aminotransferase 56 U/L (0-40); Albumin Level 4.1 g/dL (3.5-5.0); Alkaline Phosphatase 53 U/L (39-117); Anion Gap 13 (12-20); Aspartate Amino Transferase 44 U/L (5-37); Blood Urea Nitrogen 17 mg/dL (9-16); Calcium 8.8 mg/dL (8.4-10.2); Carbon Dioxide 27 mmol/L (22-29); Chloride 106 mmol/L (96-108); Creatinine Clr Calc Pharmacy 122.1; Estimated Glomerular Filt Rate > 60; Potassium 3.7 mmol/L (3.3-5.1); Sodium 142 mmol/L (135-145); Total Protein 6.7 g/dL (6.5-8.0)
[2025-02-20 04:46] LABS: COVID-19 Test Negative (Negative); IDNOW Serial# 55D5AD1C; IDNOW Serial# 58CA691E; Influenza B2 Negative (Negative)
[2025-02-20 05:47] VITALS: BP 106/59; PULSE 97; RESP 19; TEMP 36.5; O2SAT 94
[2025-02-20 06:44] VITALS: BP 106/59; PULSE 97; RESP 19; TEMP 36.5; O2SAT 94
== END 2025-02-20 07:00 | disposition home or self-care (01) ==
PROVIDERS: Emergency Provider Emergency Medicine
DX: J45.901 Unspecified asthma with (acute) exacerbation (principal)
CPT/HCPCS: 36415; 71045; 80053; 85025; 87502; 87635; 94640; 99284

== ENCOUNTER → 2025-02-20 03:52 | Outpatient (BNV) | payer SELFPAY | PROVIDERS: Emergency Provider Emergency Medicine; Visit Provider Radiology Vascular & Interventional Radiology | DX: J45.909 Unspecified asthma, uncomplicated (principal) | CPT/HCPCS: 71045 ==